=== PATIENT | male | born 1965 | race Caucasian/White ===

== ENCOUNTER 2020-06-02 15:14 | Emergency (ER) | payer BC ==
[~2020-06-02] VITALS: Ht 175.3 cm; Wt 93.0 kg
[~2020-06-02 15:14] MED LIST: COLACE 100 MG100 MG PO; LISINOPRIL10 MG PO; MIRALAX17 GM PO; OXYCODONE HCL 55 MG PO; TYLENOL325 MG PO
[2020-06-02] MEDS ORDERED: CLARITIN10 M3 PO (15:38)
[2020-06-02] MEDS ORDERED: OMEPRAZOLE 20 M20 M1 PO (15:38)
[2020-06-02] MEDS ORDERED: VITAMIN D31250 MC1 PO (15:39)
[2020-06-02 15:57] LABS: ABSOLUTE NEUTROPHILS 3.9 thou/uL (1.4-8.2); BASOPHILS 0.8 % (0.0-2.0); EOSINOPHILS 3.2 % (0.0-3.0); LYMPHOCYTES 31.4 % (24.0-44.0); MCH 30.3 pg (26.0-34.0); MCHC 34.1 g/dL (28.0-37.0); MCV 88.9 fL (80.0-100.0); MONOCYTES 11.6 % (1.0-8.0); PLATELET COUNT 287 thou/uL (150-400); RBC 4.61 mil/uL (4.50-6.00); RDW 13.9 % (10.5-14.5); WBC 7.4 thou/uL (4.0-11.0)
[2020-06-02 16:04] LABS: CALCIUM 9.3 mg/dL (8.5-10.1); CREATININE 1.1 mg/dL (0.7-1.3); POTASSIUM 4.2 mmol/L (3.5-5.1)
[2020-06-02 16:12] LABS: APTT 25.8 Seconds (24.5-32.8); INR 0.99; PROTIME 10.8 Seconds (9.3-11.4)
[2020-06-02 21:38] VITALS: BP 132/70
== END 2020-06-02 21:40 | disposition home or self-care (01) ==
LOC: ER 15:14
PROVIDERS: Emergency Medicine
DX: N48.30 Priapism, unspecified (principal); I10 Essential (primary) hypertension; Z79.899 Other long term (current) drug therapy